=== PATIENT | male | born 1995 | race Caucasian/White ===

== ENCOUNTER 2018-01-18 21:21 | Emergency (ER) | END 2018-01-18 22:59 | disposition home or self-care (01) ==

== ENCOUNTER 2018-07-14 11:28 | Emergency (ER) | END 2018-07-14 12:26 | disposition home or self-care (01) ==

== ENCOUNTER → 2019-04-15 | Emergency (ER) | payer SELFPAY ==
[~2019-04-15] VITALS: Ht 170.2 cm; Wt 71.4 kg
[~2019-04-15] MED LIST: CEPH-443 PO; HYDR-4011 PO; IBUP-1542 PO; NAPR-985 PO
[2019-04-15 11:22] VITALS: BP 129/69; PULSE 71; RESP 18; Ht 170.2 cm; Wt 71.4 kg
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
== END | disposition home or self-care (01) ==
LOC: FTE 11:08
DX: S00.11XA Contusion of right eyelid and periocular area, initial encounter (principal); Y08.89XA Assault by other specified means, initial encounter; Y92.9 Unspecified place or not applicable
CPT/HCPCS: 70200